=== PATIENT | female | born 1980 | race Caucasian/White ===

== ENCOUNTER → 2024-05-01 | Outpatient (CLI) | payer OTHER, MEDICAID, SELFPAY ==
[2024-05-01 11:49] LABS: Glucose Estimated Average 108 mg/dL (80-131); Hemoglobin A1C 5.4 % Hgb (4.8-6.0)
== END | disposition home or self-care (01) ==
PROVIDERS: PCP Family Medicine; Referring Provider Family Medicine; Visit Provider Family Medicine
DX: E11.9 Type 2 diabetes mellitus without complications (principal)
CPT/HCPCS: 36415; 83036

== ENCOUNTER → 2024-06-05 | Outpatient (CLI) | payer BC, MEDICAID, SELFPAY ==
[2024-06-05 10:23] LABS: Basophils # (Auto) 0.1 Thou/mm3 (0.0-0.2); Basophils % (Auto) 1 % (0-2.5); Eosinophils # (Auto) 0.4 Thou/mm3 (0.0-0.5); Eosinophils % (Auto) 3 % (0-10); Hematocrit 40.9 % (36.0-46.0); Immature Granulocytes % (Auto) 0 % (0-0); Immature Granulocytes Auto 0.03 Thou/mm3 (0.00-0.00); Lymphocytes # (Auto) 3.8 Thou/mm3 (1.0-4.8); Lymphocytes % (Auto) 30 % (10-50); Mean Corpuscular HGB Conc 34.2 g/dl (31.0-37.0); Mean Corpuscular Hemoglobin 30.1 pg (25.0-35.0); Mean Corpuscular Volume 88 fL (80-100); Monocytes # (Auto) 0.6 Thou/mm3 (0.0-0.8); Monocytes % (Auto) 5 % (0-12); Neutrophils # (Auto) 7.8 Thou/mm3 (1.8-7.7); Neutrophils % (Auto) 61 % (37-80); Nucleated Red Blood Cell % 0 /100 WBC (0); Platelet Count 258 Thou/mm3 (140-440); RDW Standard Deviation 43.1 fL (36.4-46.3); Red Blood Count 4.65 Miln/mm3 (4.00-5.20); White Blood Count 12.8 Thou/mm3 (3.6-11.0)
[2024-06-05 10:50] LABS: Vitamin D 25 Hydroxy Total 33.8 ng/mL (7.3-40.2)
[2024-06-05 10:55] LABS: Alanine Aminotransferase 11 U/L (10-49); Albumin, Serum 4.5 gm/dL (3.5-5.0); Albumin/Globulin Ratio 1.7 (1.2-2.2); Alkaline Phosphatase 82 U/L (46-116); Anion Gap 9 (7-16); Aspartate Amino Transferase 15 U/L (0-34); BUN/Creatinine Ratio 19 Ratio (12-20); Bilirubin,Total 0.4 mg/dL (0.3-1.2); Blood Urea Nitrogen 15 mg/dL (9-23); Calcium 9.4 mg/dL (8.3-10.6); Calcium (Corrected) 9.4 mg/dL (8.5-10.1); Carbon Dioxide 23.3 mMol/L (20.0-31.0); Cardiac Risk Estimate 4.4 RATIO (3.7-5.6); Chloride 106 mMol/L (98-107); Cholesterol 197 mg/dL (132-200); Creatinine (Component) 0.8 mg/dL (0.6-1.3); Globulin 2.7 gm/dL (2.3-3.5); Glucose 102 mg/dL (74-106); HDL Cholesterol 45 mg/dL (40-60); LDL Cholesterol,Calculated 135 mg/dL (0-130); Osmolality,Calculated 276 (275-295); Potassium 4.8 mMol/L (3.4-5.1); Sodium 138 mMol/L (136-145); Thyroid Stimulating Hormone 3.51 uIU/mL (0.55-4.78); Total Protein 7.2 gm/dL (5.7-8.2); Triglycerides 84 mg/dL (30-150); eGFR > 60 See Note
[2024-06-05 11:14] LABS: Collection Type, Urine Clean Catch
[2024-06-05 12:02] LABS: Bacteria,Urine 1+; Bilirubin,Urine 1+ (Negative); Blood,Urine Negative (Negative); Clarity,Urine Turbid (Clear/Hazy); Color,Urine Drk-Yellow (Lt Yel-Yel); Glucose, Urine Negative (Negative); Ketones,Urine Trace (Negative); Leukocyte Esterase,Urine Positive (Negative); Nitrite,Urine Negative (Negative); PH,Urine 5.5 (5.0-7.0); Protein,Urine 1+ (Neg - Trace); Specific Gravity,Urine 1.029 (1.001-1.035); WBC,Urine 8 /hpf (0-5)
[2024-06-05 12:58] LABS: Hyaline Casts,Urine 2 /hpf (0-1); RBC,Urine 3 /hpf (0-3); Squamous Epithelial Cell,Urine 11 /hpf (0-5)
[2024-06-05 14:39] LABS: Microalbumin, Random Urine 187 mg/L (0-300)
[2024-06-05 14:53] LABS: Creatinine MALB Rnd Ur 575 mg/dL (30-125); Microalbumin Creat Ratio 33 mg/gCrea (<30)
== END | disposition home or self-care (01) ==
LOC: COPL 09:48
PROVIDERS: PCP Family Medicine; Referring Provider Family Medicine; Visit Provider Family Medicine
DX: Z00.00 Encounter for general adult medical examination without abnormal findings (principal); Z13.0 Encounter for screening for diseases of the blood and blood-forming organs and certain disorders involving the immune mechanism; Z13.29 Encounter for screening for other suspected endocrine disorder; Z13.21 Encounter for screening for nutritional disorder; Z13.220 Encounter for screening for lipoid disorders
CPT/HCPCS: 36415; 80053; 80061; 81001; 82043; 82306; 82570; 84443; 85025; 87086

== ENCOUNTER → 2024-08-02 | Outpatient (CLI) | payer BC, MEDICAID, SELFPAY ==
[2024-08-02 10:52] LABS: Glucose Estimated Average 105 mg/dL (80-131); Hemoglobin A1C 5.3 % Hgb (4.8-6.0)
== END | disposition home or self-care (01) ==
LOC: COPL 09:09
PROVIDERS: PCP Family Medicine; Referring Provider Family Medicine; Visit Provider Family Medicine
DX: E11.9 Type 2 diabetes mellitus without complications (principal)
CPT/HCPCS: 36415; 83036

== ENCOUNTER → 2024-08-30 | Outpatient (CLI) | payer BC, MEDICAID, SELFPAY ==
[2024-08-30 15:00] LABS: Collection Type, Urine Clean Catch
[2024-08-30 16:05] LABS: Bacteria,Urine 1+; Bilirubin,Urine Negative (Negative); Blood,Urine Negative (Negative); Color,Urine Yellow (Lt Yel-Yel); Culture Indicated,Urine Contaminated; Glucose, Urine Negative (Negative); Ketones,Urine Negative (Negative); Leukocyte Esterase,Urine Negative (Negative); Nitrite,Urine Negative (Negative); Protein,Urine 1+ (Neg - Trace); RBC,Urine 9 /hpf (0-3); Specific Gravity,Urine 1.034 (1.001-1.035); Squamous Epithelial Cell,Urine 27 /hpf (0-5); Urobilinogen,Urine Negative mg/dL (0.0-1.0); WBC,Urine 15 /hpf (0-5)
[2024-08-30 16:10] LABS: Clarity,Urine Hazy (Clear/Hazy)
== END | disposition home or self-care (01) ==
LOC: SLDO 14:51
PROVIDERS: PCP Family Medicine; Referring Provider Family Medicine; Visit Provider Family Medicine
DX: R30.0 Dysuria (principal)
CPT/HCPCS: 81001